=== PATIENT | male | born 1995 | race Caucasian/White ===

== ENCOUNTER 2022-09-29 19:07 | Inpatient (IN) | payer OTHER, SELFPAY ==
[2022-09-29 19:30] VITALS: BP 120/72; PULSE 72; RESP 18; TEMP 36.6
[2022-09-29 20:30] VITALS: BMI 25.9
[2022-09-30] MEDS: Paliperidone ER 3 MG TAB.ER.24 PO ×2 (00:23→20:29)
[2022-09-30] MEDS: Divalproex Sodium ER 250 MG TAB.ER.24H 750 MG PO ×2 (00:23→20:28)
--- NOTE | 2022-09-30 02:39 | PC.ADMIT ---
Leroy is a 27 year old male admitted on a conditional voluntary from [facility] for Bipolar I D/O, current episode manic, with psychotic features. patient is alert and oriented X'4, pleasant and cooperative with the admission. He denies depression and anxiety, as well as suicidal/homicidal ideation. However when asking about homicidal ideation he said not yet . Per the crisis report he has recently had erratic behaviors which include going to [place] in order to stalk a girl, he rented an air B&B for 40 days and has maxed out his credit cards. he has taken his parents car without permission on several occasions and driven to [place] in an attempt to purchase another vehicle. He stole a bus ([employer]) and [facility]. 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 He has no apparent insight into the riskiness and seriousness of his recent behavior. His mother reports that he has not taken medications X's 1 week. Leroy's speech is rapid and pressured, he is grandiose and intermittently laughing to himself. he endorses visual and auditory hallucinations but did not disclose content. He stated that he has bipolar disorder but believes he has schizoaffective disorder because of the hallucinations. patient was oriented to the unit, all admission documentation is completed, treatment plan initiated
[2022-09-30 08:00] VITALS: BP 109/61; PULSE 76; RESP 18; TEMP 36.6; O2SAT 98
[2022-09-30 09:09] LABS: Estimated Average Glucose 97 mg/dL
[2022-09-30 09:47] LABS: Alanine Aminotransferase 25 U/L (0-40); Albumin Level 3.7 g/dL (3.5-5.0); Alkaline Phosphatase 50 U/L (39-117); Anion Gap 12 (12-20); Aspartate Amino Transferase 17 U/L (5-37); Bilirubin Total 0.3 mg/dL (0.0-1.0); Blood Urea Nitrogen 16 mg/dL (9-16); Calcium 9.1 mg/dL (8.4-10.2); Carbon Dioxide 26 mmol/L (22-29); Chloride 105 mmol/L (96-108); Cholesterol 116 mg/dL; Creatinine Clr Calc Pharmacy 132.8; Estimated Glomerular Filt Rate > 60; Glucose Fasting 90 mg/dL (60-99); HDL Cholesterol 34 mg/dL; LDL Cholesterol Calculated 68 mg/dl; Sodium 139 mmol/L (135-145); Total Protein 6.2 g/dL (6.5-8.0); Triglycerides 73 mg/dL
--- NOTE | 2022-09-30 10:51 | P.HPPS_ITS ---
HPI Date of Service: 09/30/22 Chief Complaint: Karen Sources of Information: patient interviewed, chart reviewed and crisis/core team assessment reviewed HPI Subjective Notes: Andino Warning (given and shows understanding) and Conditional Voluntary Narrative: Mr. Saldana is a 27 year-old male with hx of Bipolar Disorder type 1 who was brought on sect 12 to [facility] ED after pt stole bus at [facility]. In the ED, pt described as laughing inappropriately, not showing insight into concerning behaviors of stealing bus and driving erratically. Per crisis report, pt had reported hearing voices telling him to take the bus. His utox is negative and th is is his 4th inpatient admission this year for s/s of karen. Per crisis, it appears pt had not been taking medications as prescribed. Depakote level in ED was low. On the unit, pt presents as pleasant and overly bright. 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 He reports his memory is blurry. He does not think he was hearing voices but was confused as to what was going on and thought he was still working there. He reports not sleepign in past 2 weeks. He denies SI/HI. He states I'm not manic, I'm fine. Pt reports he was taking medications sporadically, not convinced he needs them although he also reports he has been in psychiatric unit most of this year. He denies hearing voices. Not fully forthcoming with extend of delusional content. Past Psychiatric History: Inpt: 3 admission at [facility] in 2022. OP:Gabrielle Vasquez Past trials: wellbutrin (induced karen), depakote, invega Medical Evaluation Reviewed: Yes [facility] Medical History Bipolar disorder Major depressive disorder Schizophrenia Vapes nicotine containing substance Social History: Pt lives with mother, brother and aunt. Not currently working. Substance History: None Trauma History: None reported Diagnostics Vital Signs (24Hr): Vital Signs - 24 hr 09/29/22 19:30 09/30/22 08:00 Temperature 97.8 F 97.9 F Pulse Rate 72 76 Respiratory Rate 18 18 Blood Pressure 120/72 109/61 Pulse Oximetry 98 Oxygen Delivery Method Room Air BMI result Body Mass Index 25.9 Labs 09/30/22 08:17 Labs: Laboratory Results - last 48 hr 09/30/22 09/30/22 08:17 08:17 Sodium 139 Potassium 4.0 Chloride 105 Carbon Dioxide 26 Anion Gap 12 BUN 16 Creatinine 0.85 Estim Creat Clear Calc 132.8 Estimated GFR > 60 Fasting Glucose 90 Estimat Average Glucose 97 Hemoglobin A1c % 5.0 Calcium 9.1 Total Bilirubin 0.3 AST 17 ALT 25 Alkaline Phosphatase 50 Total Protein 6.2 L Albumin 3.7 Triglycerides 73 Cholesterol 116 LDL Cholesterol, Calc 68 HDL Cholesterol 34 Meds/Allergies Meds Home Medications Medication Instructions Recorded Confirmed Type bupropion HCl 100 mg tablet,12 hr 100 mg PO QAM 09/29/22 09/29/22 History sustained-release clonazepam 1 mg tablet 1 mg PO BEDTIME 09/29/22 09/29/22 History divalproex 500 mg tablet,extended 1,500 mg PO BEDTIME 09/29/22 09/29/22 History release 24 hr hydroxyzine pamoate 50 mg capsule 50 mg PO Q6H PRN anxiety 09/29/22 09/29/22 History paliperidone 3 mg tablet,extended 3 mg PO BEDTIME 09/29/22 09/29/22 History release 24 hr paliperidone 6 mg tablet,extended 6 mg PO BEDTIME 09/29/22 09/29/22 History release 24 hr paliperidone palmitate 234 mg/1.5 234 mg IM 09/29/22 History mL intramuscular syringe (Invega Sustenna) Allergies Allergies Allergy/AdvReac Type Severity Reaction Status Date / Time No Known Allergies Allergy Verified 09/29/22 20:46 Mental Status Exam Mental Status Exam Narrative: Appearance: casually groomed, fair hygiene, in NAD Behavior: cooperative Speech: clear, normal rate/rhythm/volume, spontaneous Psychomotor: no agitation or retardation noted TP: mostly linear TC: feeling fine, doesn't know why he may need to be here in hospital Mood: good Affect: less expansive SI: denies HI: denies AH/VH: none Delusions: not fully forthcoming with extend of delusional content. thought he was still working, trying to buy more cars, over spending. Insight/judgment: poor x 2. Memory/cog: alert, oriented x 3. Assessment & Plan Assessment & Plan (1) Bipolar 1 disorder, manic, moderate: Status: Acute Code(s): F31.12 - Bipolar disorder, current episode manic without psychotic features, moderate Plan Mr. Saldana is a 27 year-old male with hx of Bipolar Disorder type 1. Brought to [facility] ED on sect 12a after he stole bus from [facility]. Pt presented as with e xpansive affect, engaging in risky behaviors such as over spending, impulsively taking bus, decreased need for sleep. We discussed risks, benefits and alternative treatment options. Pt agrees to restart depakote and paliperidone. PLAN 1. Admit to , CV, 15 minutes checks for safety 2. continue depakote and paliperidone- titrate depakote to therapeutic dose 3. obtain collateral information 4. aftercare planning. Patient educated on: diagnosis and medication risk/benefits Reason for continued inpatient stay Substantial Risk for: inability to function Statement Statement: I have reviewed the history and physical and performed a pertinent examination on my patient. No changes have occurred unless specified. If the History and Physical was not performed prior to admission, the Hospitalist's service will be consulted for completing the admission physical. Time Spent With Patient Time: Total time managing care of this patient today ____ minutes.
--- NOTE | 2022-09-30 11:22 | HO.PM.IMCN ---
History of Present Illness Data of Consult Service Date: 09/30/22 Requesting physician: Arnoldo Kay Primary Care Provider: PERNELL Langford HPI Reason for consult: medical h&p 27-year-old male with history of depression, schizophrenia, and bipolar disorder with who is a current everyday nicotine vapor admitted to Psychiatry with consult placed to hospitalist service for medical H& P. He has no complaints at this time. Tells me that he vagueness nicotine regularly and is trying to cut back. He drinks alcohol socially and denies any illicit drug use. Review of Systems Review of Systems: General: No fevers, malaise, unintentional weight loss HEENT: No blurred vision, diplopia. No sore throat, nasal congestion, rhinorrhea, sinus pain, ear pain Cardiovascular: No chest pain, palpitations, or leg edema Respiratory: No shortness of breath, wheezing, cough GI: No abdominal pain, nausea, vomiting, diarrhea, constipation, melena, hematochezia : No dysuria, hematuria, increased urinary frequency, decreased urinary output MSK: No myalgia, back pain Neuro: No headaches, weakness, paresthesias Skin: No rashes or lesions PMFSH Medical History Bipolar disorder Major depressive disorder Schizophrenia Vapes nicotine containing substance Social History Household Members: Family Housing: House Do you presently have visiting nurse or other home services: No Patient Tobacco Use Status: Never used Tobacco Smoked in Last 30 Days: Yes e-Cigarette/Vaping Use: Currently Using Frequency of e-Cigarette/Vaping Use: all day Patient Interested in Nicotine Replacement: Yes Patient Given Instructions on How to Stop Smoking: No Second Hand Smoke Exposure: No Use of substances other than those prescribed or required for medical reasons: No Substance Use Type: Marijuana Substance Use Frequency: Occasionally Last Used Substance: Weeks (ago) Currently Displaying Signs/Symptoms of Drug Intoxication Withdrawal: No Any prior treatment program specific to substance use: No Have you been hit, kicked, punched, or otherwise hurt by someone within the past year? If so, by whom?: No Do you feel safe in your current relationship?: No Current Relationship Is there a partner from a previous relationship who is making you feel unsafe now?: No Are you made to feel afraid or neglected: No Advance Directives: No Advance Directives Information Provided: No Do you have thoughts of harming others: None Do you have a plan to hurt others: No Plan Recently lost weight without trying: No Poor oral hygiene: No Meds Allergies Allergy/AdvReac Type Severity Reaction Status Date / Time No Known Allergies Allergy Verified 09/29/22 20:46 Active Medications: Current Medications Acetaminophen (Acetaminophen 325 Mg Tablet) 650 mg PO Q6H PRN PRN Reason: Headache/Pain Mild Scale (1-3) Al Hydroxide/Mg Hydroxide (Magnesium Hydrox/Alum Hydrox 30 Ml Oral.Susp) 30 ml PO Q6H PRN PRN Reason: Heartburn/Nausea Divalproex Sodium (Divalproex Sodium Er 250 Mg Tab.Er.24h) 750 mg PO BEDTIME [facility] Last Admin: 09/30/22 00:23 Dose: 750 mg Hydroxyzine HCl (Hydroxyzine Hcl 50 Mg Tablet) 50 mg PO Q6H PRN PRN Reason: anxiety Magnesium Hydroxide (Milk Of Magnesia 30 Ml Oral.Susp) 30 ml PO DAILY PRN PRN Reason: Constipation Nicotine Polacrilex (Nicotine Polacrilex 2 Mg Gum) 4 mg BUCCAL Q2H PRN PRN Reason: Nicotine Cravings Olanzapine (Olanzapine 5 Mg Tablet) 5 mg PO TID PRN PRN Reason: agitation Paliperidone (Paliperidone Er 3 Mg Tab.Er.24) 3 mg PO BEDTIME [facility] Last Admin: 09/30/22 00:23 Dose: 3 mg Trazodone HCl (Trazodone Hcl 50 Mg Tablet) 50 mg PO BEDTIME MRX1 PRN PRN Reason: Insomnia Home Medications Medication Instructions Recorded Confirmed Last Taken Type bupropion HCl 100 mg tablet,12 hr 100 mg PO QAM 09/29/22 09/29/22 Unknown History sustained-release clonazepam 1 mg tablet 1 mg PO BEDTIME 09/29/22 09/29/22 Unknown History divalproex 500 mg tablet,extended 1,500 mg PO BEDTIME 09/29/22 09/29/22 Unknown History release 24 hr hydroxyzine pamoate 50 mg capsule 50 mg PO Q6H PRN anxiety 09/29/22 09/29/22 Unknown History paliperidone 3 mg tablet,extended 3 mg PO BEDTIME 09/29/22 09/29/22 Unknown History release 24 hr paliperidone 6 mg tablet,extended 6 mg PO BEDTIME 09/29/22 09/29/22 Unknown History release 24 hr paliperidone palmitate 234 mg/1.5 234 mg IM 09/29/22 08/30/22 History mL intramuscular syringe (Invega Sustenna) Physical Exam Vital Signs and Narrative: Vital Signs: Last Vital Signs Temp 97.9 F 09/30/22 08:00 Pulse 76 09/30/22 08:00 Resp 18 09/30/22 08:00 BP 109/61 09/30/22 08:00 Pulse Ox 98 09/30/22 08:00 O2 Del Method Room Air 09/30/22 08:00 BMI result Body Mass Index 25.9 Results Labs 09/30/22 08:17 Labs: Laboratory Results - last 24 hr 09/30/22 09/30/22 08:17 08:17 Anion Gap 12 Estim Creat Clear Calc 132.8 Estimated GFR > 60 Fasting Glucose 90 Estimat Average Glucose 97 Hemoglobin A1c % 5.0 Calcium 9.1 Total Bilirubin 0.3 AST 17 ALT 25 Alkaline Phosphatase 50 Total Protein 6.2 L Albumin 3.7 Triglycerides 73 Cholesterol 116 LDL Cholesterol, Calc 68 HDL Cholesterol 34 Assessment and Plan (1) Routine medical exam: Status: Acute Plan 27-year-old male with history of depression, schizophrenia, and bipolar disorder with who is a current everyday nicotine vapor admitted to Psychiatry with consult placed to hospitalist service for medical H& P. # mood disorder/schizophrenia -plan for psychiatry # nicotine vaping -counseled on cessation -patches/gum for NRT Thank you for allowing me to participate in this consult. Signing off at this time. Please do not hesitate to call for further questions. Time Spent With Patient Time: Total time managing care of this patient today ____ minutes.
[2022-09-30 11:57] LABS: Appearance Urine Clear; Color Urine Yellow; Glucose Urine UA Negative (Negative); Leukocyte Esterase Urine Negative (Negative); Nitrite Urine Negative (Negative); PH 6.5 (5.0-9.0); Urine Blood Negative (Negative); Urine Ketones Trace mg/dL (Negative); Urine Protein Negative (Neg-Trace)
[2022-09-30 12:04] LABS: Bacteria Urine None Seen (None Seen); Hyaline Casts Urine 0-2 /LPF (0-2); RBC Urine 0-2 /HPF (0-2); Squamous Epithelial Cell Urine 0-2 /HPF (0-2); WBC Urine 0-5 /HPF (0-5)
[2022-09-30 12:41] LABS: Amphetamine Screen Urine Not Detected (Not Detect); Barbiturates, Urine Not Detected (Not Detect); Benzodiazepines Screen Urine Not Detected (Not Detect); Cannabinoid Screen Urine Not Detected (Not Detect); Cocaine Screen Urine Not Detected (Not Detect); Fentanyl, urine Not Detected (Not Detect); Opiate Screen Urine Not Detected (Not Detect); Phencyclidine Screen Urine Not Detected (Not Detect)
[2022-09-30 18:00] VITALS: BP 137/74; PULSE 82; RESP 18; TEMP 36.6; O2SAT 99
[2022-09-30] MEDS: Nicotine Polacrilex 2 MG GUM 4 MG BUCCAL (19:42)
[2022-09-30] MEDS: traZODone HCL 50 MG TABLET PO ×2 (20:54→22:22)
[2022-09-30] MEDS: hydrOXYzine HCL 50 MG TABLET PO (22:22)
[2022-10-01 12:06] VITALS: BP 108/55; PULSE 68; RESP 18; TEMP 36.2; O2SAT 99
[2022-10-01] MEDS: Nicotine Polacrilex 2 MG GUM 4 MG BUCCAL (12:45)
[2022-10-01] MEDS: Nicotine 21 MG PATCH.TD24 TRANSDERMA (14:50)
[2022-10-01] MEDS: Artificial Tears 15 ML DROPS 2 DROP EYE-BOTH (14:59)
--- NOTE | 2022-10-01 16:08 | P.PNPSI_ITS ---
Subjective Subjective Date of Service: 10/01/22 Reason For Visit: Karen Interim History: pleasant, cooperative. flamboyantly dressed. discuss dosing with him, was prescribed invega 9 and VPA 1500 outpt, which he felt was too much, so he stopped the meds. currently he is Rx'ed invega 3 and VPA 750 inpatient. suggests moving closer to outpt dosing without reaching, pt agrees to invega 6 and VPA 1000 at HS. per staff, 3-day notice up tomorrow. +AH, no anx/dep. feeling amazing yesterday. lots of PRNs and still didn't fall asleep until 0200. Mental Status Exam Mental Status Exam Narrative: Appearance: casually groomed, fair hygiene, in NAD Behavior: cooperative Speech: clear, normal rate/rhythm/volume, spontaneous Psychomotor: no agitation or retardation noted TP: mostly linear TC: feeling fine, insight that taking bus was not a reasonable thing to do Mood: good Affect: less expansive SI: denies HI: denies AH/VH: none Delusions: unclear Insight/judgment: insight improved, judment poor. Memory/cog: alert, oriented x 3. Diagnostics Vital Signs (24Hr): Vital Signs - 24 hr 09/30/22 18:00 10/01/22 12:06 Temperature 98 F 97.2 F Pulse Rate 82 68 Respiratory Rate 18 18 Blood Pressure 137/74 108/55 L Pulse Oximetry 99 99 Oxygen Delivery Method Room Air Room Air BMI result Body Mass Index 25.9 Labs 09/30/22 08:17 Labs: Laboratory Results - last 48 hr 09/30/22 09/30/22 09/30/22 08:17 08:17 11:05 Sodium 139 Potassium 4.0 Chloride 105 Carbon Dioxide 26 Anion Gap 12 BUN 16 Creatinine 0.85 Estim Creat Clear Calc 132.8 Estimated GFR > 60 Fasting Glucose 90 Estimat Average Glucose 97 Hemoglobin A1c % 5.0 Calcium 9.1 Total Bilirubin 0.3 AST 17 ALT 25 Alkaline Phosphatase 50 Total Protein 6.2 L Albumin 3.7 Triglycerides 73 Cholesterol 116 LDL Cholesterol, Calc 68 HDL Cholesterol 34 Urine Color Urine Appearance Urine pH Ur Specific Sharon Urine Protein Urine Glucose (UA) Urine Ketones Urine Blood Urine Nitrite Ur Leukocyte Esterase Urine RBC Urine WBC Ur Squamous Epith Cells Urine Bacteria Hyaline Casts Urine Opiates Screen Not Detected Urine Fentanyl Screen Not Detected Ur Barbiturates Screen Not Detected Ur Phencyclidine Scrn Not Detected Ur Amphetamines Screen Not Detected U Benzodiazepines Scrn Not Detected Urine Cocaine Screen Not Detected U Marijuana (THC) Screen Not Detected 09/30/22 11:05 Sodium Potassium Chloride Carbon Dioxide Anion Gap BUN Creatinine Estim Creat Clear Calc Estimated GFR Fasting Glucose Estimat Average Glucose Hemoglobin A1c % Calcium Total Bilirubin AST ALT Alkaline Phosphatase Total Protein Albumin Triglycerides Cholesterol LDL Cholesterol, Calc HDL Cholesterol Urine Color Yellow Urine Appearance Clear Urine pH 6.5 Ur Specific Sharon 1.020 Urine Protein Negative Urine Glucose (UA) Negative Urine Ketones Trace Urine Blood Negative Urine Nitrite Negative Ur Leukocyte Esterase Negative Urine RBC 0-2 Urine WBC 0-5 Ur Squamous Epith Cells 0-2 Urine Bacteria None Seen Hyaline Casts 0-2 Urine Opiates Screen Urine Fentanyl Screen Ur Barbiturates Screen Ur Phencyclidine Scrn Ur Amphetamines Screen U Benzodiazepines Scrn Urine Cocaine Screen U Marijuana (THC) Screen Medications Medications Current Medications Acetaminophen (Acetaminophen 325 Mg Tablet) 650 mg PO Q6H PRN PRN Reason: Headache/Pain Mild Scale (1-3) Al Hydroxide/Mg Hydroxide (Magnesium Hydrox/Alum Hydrox 30 Ml Oral.Susp) 30 ml PO Q6H PRN PRN Reason: Heartburn/Nausea Artificial Tears (Artificial Tears 15 Ml Drops) 2 drop EYE-BOTH Q4H PRN PRN Reason: Dry Eyes Last Admin: 10/01/22 14:59 Dose: 2 drop Divalproex Sodium (Divalproex Sodium Er 500 Mg Tab.Er.24h) 1,000 mg PO BEDTIME ALEN Hydroxyzine HCl (Hydroxyzine Hcl 50 Mg Tablet) 50 mg PO Q6H PRN PRN Reason: anxiety Last Admin: 09/30/22 22:22 Dose: 50 mg Magnesium Hydroxide (Milk Of Magnesia 30 Ml Oral.Susp) 30 ml PO DAILY PRN PRN Reason: Constipation Nicotine (Nicotine 21 Mg Patch.Td24) 21 mg TRANSDERMA DAILY ALEN Last Admin: 10/01/22 14:50 Dose: 21 mg Nicotine Polacrilex (Nicotine Polacrilex 2 Mg Gum) 4 mg BUCCAL Q2H PRN PRN Reason: Nicotine Cravings Last Admin: 10/01/22 12:45 Dose: 4 mg Olanzapine (Olanzapine 5 Mg Tablet) 5 mg PO TID PRN PRN Reason: agitation Paliperidone (Paliperidone Er 6 Mg Tab.Er.24) 6 mg PO BEDTIME ALEN Trazodone HCl (Trazodone Hcl 50 Mg Tablet) 50 mg PO BEDTIME MRX1 PRN PRN Reason: Insomnia Last Admin: 09/30/22 22:22 Dose: 50 mg Allergies Allergies Allergy/AdvReac Type Severity Reaction Status Date / Time No Known Allergies Allergy Verified 09/29/22 20:46 Assessment & Plan Assessment & Plan (1) Bipolar 1 disorder, manic, moderate: Status: Acute Code(s): F31.12 - Bipolar disorder, current episode manic without psychotic features, moderate Plan Mr. Saldana is a 27 year-old male with hx of Bipolar Disorder type 1. Brought to [facility] ED on sect 12a after he stole bus from [employer]. Pt presented as with expansive affect, engaging in risky behaviors such as over spending, impulsively taking bus, decreased need for sleep. We discussed risks, benefits and alternative treatment options. Pt agrees to restart depakote and paliperidone. PLAN 1. Admit to M3, CV, 15 minutes checks for safety 2. continue depakote and paliperidone- titrate depakote to therapeutic dose 3. obtain collateral information 4. aftercare planning. 10/01: increase invega to 6 mg and VPA to 1000 mg tonight. improved insight today. Reason for continued inpatient stay Substantial Risk for: harm to self, harm to others, inability to function and rapid decompensation Time Spent With Patient Time: Total time managing care of this patient today __35__ minutes.
[2022-10-01 18:00] VITALS: BP 140/80; PULSE 100; RESP 16; TEMP 36.7; O2SAT 99
[2022-10-01] MEDS: Divalproex Sodium ER 500 MG TAB.ER.24H 1000 MG PO (20:23)
[2022-10-01] MEDS: traZODone HCL 50 MG TABLET PO ×2 (20:24→23:42)
[2022-10-01] MEDS: Paliperidone ER 6 MG TAB.ER.24 PO (20:24)
[2022-10-01] MEDS: hydrOXYzine HCL 50 MG TABLET PO (20:24)
[2022-10-02] MEDS: Artificial Tears 15 ML DROPS 2 DROP EYE-BOTH ×3 (05:22→13:18)
[2022-10-02 08:20] VITALS: BP 114/68; PULSE 80; RESP 18; TEMP 36.4; O2SAT 99
[2022-10-02] MEDS: Nicotine 21 MG PATCH.TD24 TRANSDERMA (08:46)
[2022-10-02] MEDS: Nicotine Polacrilex 2 MG GUM 4 MG BUCCAL (10:47)
--- NOTE | 2022-10-02 11:10 | P.DS_ITS ---
DS: Providers Provider Date of Service: 10/02/22 Date of admission: 09/29/22 19:07 Primary care physician: PERNELL Langford Consults: 09/29/22 21:02 Consult to Hospitalist Routine Comment: Consulting Provider: Hospitalist Reason For Exam: admission physical DS: Diagnosis Discharge Diagnosis (1) Bipolar 1 disorder, manic, moderate: Status: Acute DS: Medications Discharge Medications Home Medications: Previous Rx's Medication Instructions Recorded divalproex 500 mg tablet,extended 1,000 mg PO BEDTIME 30 days #60 10/02/22 release 24 hr tabs hydroxyzine pamoate 50 mg capsule 50 mg PO Q6H PRN anxiety 30 days 10/02/22 #90 caps nicotine (polacrilex) 2 mg gum 4 mg buccal Q2H PRN Nicotine 10/02/22 Cravings 30 days #120 ea nicotine 21 mg/24 hr daily 21 mg transdermal DAILY 28 days 10/02/22 transdermal patch #28 ea paliperidone 6 mg tablet,extended 6 mg PO BEDTIME 30 days #30 tabs 10/02/22 release 24 hr Mental Status Exam Mental Status Exam Narrative: Appearance: casually groomed, fair hygiene, in NAD Behavior: cooperative Speech: clear, normal rate/rhythm/volume, spontaneous Psychomotor: no agitation or retardation noted TP: linear, logical TC: feeling fine, insight that taking bus was not a reasonable thing to do Mood: cheery Affect: less expansive SI: denies HI: denies AH/VH: endorses hearing some whispers, but nothing like the voices he had been hearing when off meds Delusions: unclear Insight/judgment: insight improved, judment poor. Memory/cog: alert, oriented x 3. Data Data Completed and Pending Completed studies during hospitalization [Text1]: 09/30/22 09/30/22 09/30/22 08:17 08:17 11:05 Sodium 139 Potassium 4.0 Chloride 105 Carbon Dioxide 26 Anion Gap 12 BUN 16 Creatinine 0.85 Estim Creat Clear Calc 132.8 Estimated GFR > 60 Fasting Glucose 90 Estimat Average Glucose 97 Hemoglobin A1c % 5.0 Calcium 9.1 Total Bilirubin 0.3 AST 17 ALT 25 Alkaline Phosphatase 50 Total Protein 6.2 L Albumin 3.7 Triglycerides 73 Cholesterol 116 LDL Cholesterol, Calc 68 HDL Cholesterol 34 Urine Color Urine Appearance Urine pH Ur Specific [place] Urine Protein Urine Glucose (UA) Urine Ketones Urine Blood Urine Nitrite Ur Leukocyte Esterase Urine RBC Urine WBC Ur Squamous Epith Cells Urine Bacteria Hyaline Casts Urine Opiates Screen Not Detected Urine Fentanyl Screen Not Detected Ur Barbiturates Screen Not Detected Ur Phencyclidine Scrn Not Detected Ur Amphetamines Screen Not Detected U Benzodiazepines Scrn Not Detected Urine Cocaine Screen Not Detected U Marijuana (THC) Screen Not Detected 09/30/22 11:05 Sodium Potassium Chloride Carbon Dioxide Anion Gap BUN Creatinine Estim Creat Clear Calc Estimated GFR Fasting Glucose Estimat Average Glucose Hemoglobin A1c % Calcium Total Bilirubin AST ALT Alkaline Phosphatase Total Protein Albumin Triglycerides Cholesterol LDL Cholesterol, Calc HDL Cholesterol Urine Color Yellow Urine Appearance Clear Urine pH 6.5 Ur Specific [place] 1.020 Urine Protein Negative Urine Glucose (UA) Negative Urine Ketones Trace Urine Blood Negative Urine Nitrite Negative Ur Leukocyte Esterase Negative Urine RBC 0-2 Urine WBC 0-5 Ur Squamous Epith Cells 0-2 Urine Bacteria None Seen Hyaline Casts 0-2 Urine Opiates Screen Urine Fentanyl Screen Ur Barbiturates Screen Ur Phencyclidine Scrn Ur Amphetamines Screen U Benzodiazepines Scrn Urine Cocaine Screen U Marijuana (THC) Screen DS: Summary Hospital Course Hospital Course: per 09/30 admission note: Mr. Saldana is a 27 year-old male with hx of Bipolar Disorder type 1 who was brought on sect 12 to [facility] ED after pt stole bus at [facility]. In the ED, pt described as laughing inappropriately, not showing insight into concerning behaviors of stealing bus and driving erratically. Per crisis report, pt had reported hearing voices telling him to take the bus. His utox is negative and this is his 4th inpatient admission this year for s/s of jocelyn. Per crisis, it appears pt had not been taking medications as prescribed. Depakote level in ED was low. On the unit, pt presents as pleasant and overly bright. 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 He reports his memory is blurry. He does not think he was hearing voices but was confused as to what was going on and thought he was still working there. He reports not sleepign in past 2 weeks. He denies SI/HI. He states I'm not manic, I'm fine. Pt reports he was taking medications sporadically, not convinced he needs them although he also reports he has been in psychiatric unit most of this year. He denies hearing voices. Not fully forthcoming with extend of delusional content. Past Psychiatric History: Inpt: 3 admission at [facility] in 2022.? OP:Gabrielle Vasquez ? Past trials: wellbutrin (induced jocelyn), depakote, invega Medical Evaluation Reviewed: Yes [facility] Medical History Bipolar disorder Major depressive disorder Schizophrenia Vapes nicotine containing substance Social History: Pt lives with mother, brother and aunt. Not currently working. Substance History: None Trauma History: None reported 10/01: pleasant, cooperative.? flamboyantly dressed.? discuss dosing with him, was prescribed invega 9 and VPA 1500 outpt, which he felt was too much, so he stopped the meds.? currently he is Rx'ed invega 3 and VPA 750 inpatient.? MD suggests moving closer to outpt dosing without reaching, pt agrees to invega 6 and VPA 1000 at HS.? per staff, 3-day notice up tomorrow.? +AH, no anx/dep.? feeling amazing yesterday.? lots of PRNs and still didn't fall asleep until 0200. Precis: Mr. Saldana is a 27 year-old male with hx of Bipolar Disorder type 1. Brought to [facility] ED on sect 12a after he stole bus from [facility]. Pt presented as? with expansive affect, engaging in risky behaviors such as over spending, impulsively taking bus, decreased need for sleep. We discussed risks, benefits and alternative treatment options. Pt agrees to restart depakote and paliperidone. 09/30: continue depakote and paliperidone- titrate depakote to therapeutic dose 10/01:? increase invega to 6 mg and VPA to 1000 mg tonight.? improved insight today. 10/02: 3-day notice matures, not committable. discharged. meds reviewed, reconciled, prescribed. Time Spent with Patient Time attestation: Total time managing care of this patient today ____ minutes. Time spent: Greater than 30 minutes Discharge Plan Discharge Anticipated Discharge Date/Time: 10/02/22 14:00 Patient Disposition: Home, Self-Care Discharge Diagnosis: Bipolar I Disorder, MRE Manic Referrals: Israel Hicks PA [Primary Care Provider] - 1 Week Discharge Medications: New nicotine (polacrilex) 2 mg Gum 4 mg buccal Q2H PRN (Reason: Nicotine Cravings) 30 Days Qty: 120 0RF divalproex 500 mg Tablet Extended Release 24 Hr 1,000 mg PO BEDTIME 30 Days Qty: 60 0RF nicotine 21 mg/24 hr Patch 24 Hour 21 mg transdermal DAILY 28 Days Qty: 28 0RF Continued hydroxyzine pamoate 50 mg capsule 50 mg PO Q6H PRN (Reason: anxiety) 30 Days Qty: 90 0RF paliperidone 6 mg tablet extended release 24 hr 6 mg PO BEDTIME 30 Days Qty: 30 0RF Discontinued clonazepam 1 mg tablet 1 mg PO BEDTIME bupropion HCl 100 mg tablet sustained-release 12 hr 100 mg PO QAM Invega Sustenna 234 mg/1.5 mL syringe 234 mg IM Patient Comments: I don't really plan on taking that I prefer the PO medications Rx Instructions: 1 X monthly divalproex 500 mg tablet extended release 24 hr 1,500 mg PO BEDTIME paliperidone 3 mg tablet extended release 24 hr 3 mg PO BEDTIME Discharge Orders: Discharge Order (Routine); Ordered 10/02/22 Ordered By: Arnoldo Kay Diet: Advance to usual diet Activity on Discharge: As tolerated Stand Alone Forms: Patient Portal Discharge page, Community Support Care Plan Goals: remain safe and stable in the outpatient treatment setting Health Concerns: none Plan of Treatment: take medications as prescribed, follow up with referral for outpatient mental health services Assessment: not at imminent risk of harm to self or others Discharge Date/Time: 10/02/22 14:20
== END 2022-10-02 14:20 | disposition home or self-care (01) | DRG 885 ==
PROVIDERS: Psychiatry & Neurology Psychiatry; Admitting Provider Psychiatry & Neurology Psychiatry; PCP Physician Assistant; Visit Provider Psychiatry & Neurology Psychiatry
DX: F31.12 Bipolar disorder, current episode manic without psychotic features, moderate (principal); F17.290 Nicotine dependence, other tobacco product, uncomplicated; Z79.899 Other long term (current) drug therapy
CPT/HCPCS: 36415; 80053; 80061; 80307; 81001; 83036

== ENCOUNTER → 2022-09-29 19:07 | Outpatient (BNV) | payer OTHER, SELFPAY | PROVIDERS: Admitting Provider Psychiatry & Neurology Psychiatry; PCP Physician Assistant; Visit Provider Psychiatry & Neurology Psychiatry | DX: F31.12 Bipolar disorder, current episode manic without psychotic features, moderate (principal) | CPT/HCPCS: 90792; 99232; 99239 ==

== ENCOUNTER → 2022-09-29 19:07 | Outpatient (BNV) | payer OTHER, SELFPAY | PROVIDERS: Admitting Provider Psychiatry & Neurology Psychiatry; PCP Physician Assistant; Visit Provider Physician Assistant | DX: Z00.00 Encounter for general adult medical examination without abnormal findings (principal) | CPT/HCPCS: 99221 ==